=== PATIENT | female | born 1945 ===

== ENCOUNTER 2017-09-17 08:05 | Outpatient (CLI) | payer OTHER | END 2017-09-17 08:09 | disposition home or self-care (01) | LOC: RAD 08:05 | DX: J43.9 Emphysema, unspecified (principal); J44.9 Chronic obstructive pulmonary disease, unspecified; I51.7 Cardiomegaly; I70.0 Atherosclerosis of aorta ==

== ENCOUNTER 2017-09-17 09:00 | Outpatient (CLI) | payer OTHER | END 2017-09-17 09:22 | disposition home or self-care (01) | LOC: NUCLEAR 09:00 | DX: M81.0 Age-related osteoporosis without current pathological fracture (principal) ==